=== PATIENT | male | born 1980 | race Caucasian/White ===

== ENCOUNTER 2017-08-31 22:27 | Emergency (ER) | payer OTHER ==
--- NOTE | 2017-09-01 00:45 | ER Document Report ---
ED General - General Chief Complaint: Abdominal Pain Stated Complaint: LEFT FLANK PAIN Time Seen by Provider: 09/01/17 00:30 Notes: Patient is a 37-year-old male who presents with complaints of left flank pain. Pains in the left flank and left lower quadrant. Started this started after he was moving some stuff in a garage initially thought maybe it pulled something even though he did not feel something pull that time. Pain is progressively gotten worse. Tonight he had a bowel movement that had some blood in it. He says it was not large amount of blood but he typically does not have blood in his bowel movements. Denies any fever. No vomiting. No diarrhea. Never had this pain before. No history of colonoscopy. He does have a family history of colon cancer. The only medications he takes are for PTSD. He has no other complaints at this time. TRAVEL OUTSIDE OF THE [place] IN LAST 30 DAYS: No - Related Data Allergies/Adverse Reactions: No Known Allergies Allergy (Verified 08/31/17 22:30) Past Medical History - Social History Smoking Status: Never Smoker Frequency of alcohol use: None Drug Abuse: None Family History: Reviewed & Not Pertinent Patient has suicidal ideation: No Patient has homicidal ideation: No Renal/ Medical History: Denies: Hx Peritoneal Dialysis Psychiatric Medical History: Reports: Hx Post Traumatic Stress Disorder Past Surgical History: Reports: Hx Orthopedic Surgery - Immunizations Hx Diphtheria, Pertussis, Tetanus Vaccination: Yes Review of Systems - Review of Systems Notes: My Normal Review Basic REVIEW OF SYSTEMS: CONSTITUTIONAL : Denies fever, chills, or sweats. Denies recent illness. EENT: Denies eye, ear, throat, or mouth pain or symptoms. Denies nasal or sinus congestion. CARDIOVASCULAR: Denies chest pain. RESPIRATORY: Denies cough, cold, or chest congestion. Denies shortness of breath, difficulty breathing, or wheezing. GASTROINTESTINAL: Left lower quadrant abdominal pain. Denies nausea, vomiting, or diarrhea. GENITOURINARY: Denies difficulty urinating, painful urination, burning, frequency, or blood in urine. MUSCULOSKELETAL: Denies neck or back pain or joint pain or swelling. SKIN: Denies rash or skin lesions. NEUROLOGICAL: Denies altered mental status or loss of consciousness. Denies headache. Denies weakness or paralysis or loss of use of either side. Denies problems with gait or speech. Denies sensory or motor loss. ALL OTHER SYSTEMS REVIEWED AND NEGATIVE. Physical Exam - Vital signs Vitals: Temp Pulse Resp BP Pulse Ox 98.4 F 90 18 152/93 H 99 08/31/17 22:30 08/31/17 22:30 08/31/17 22:30 08/31/17 22:30 08/31/17 22:30 - Notes Notes: General Appearance: Well nourished, alert, cooperative, no acute distress, mild obvious discomfort. Vitals: reviewed, See vital signs table. Head: no swelling or tenderness to the head Eyes: PERRL, EOMI, Conjuctiva clear Mouth: No decreasd moisture Lungs: No wheezing, No rales, No rhonci, No accessory muscle use, good air exchange bilaterally. Heart: Normal rate, Regular rythm, No murmur, no rub Abdomen: Normal BS, soft, No rigidity, mild to moderate left lower quadrant abdominal tenderness outpatient, No guarding, no rebound, no abdominal masses, no organomegaly Rectal: small amount of dry bloodnear rectum. No active bleeding. No hemorrhoids. Extremities: strength 5/5 in all extremities, good pulses in all extremities, no swelling or tenderness in the extremities, no edema. Skin: warm, dry, appropriate color, no rash Neuro: speech clear, oriented x 3, normal affect, responds appropriately to questions. Course - Re-evaluation Re-evalutation: 09/01/17 05:[address] scan does show what appears to be colitis. The also mentions could be epiploic appendagitis or cystitis. I do not think a cystitis patient has no white blood cells in his urine. I think is more likely is focal colitis based on the fact he did have some blood in the stool. I will place him on antibiotics for the next 7 days. I informed him [facility] I have put in office lab results and the CT scan results to bring with him. He does have family history of colon cancer and therefore I told him that he may need a colonoscopy soon and to discuss this with his doctor. I informed him that if his pain is not improving then he will definitely need a colonoscopy. I informed him that if his pain is getting worse or if he has fevers or recurrent blood in the stool that he must return to the ER immediately. Patient agrees with plan will be discharged home. Dictation of this chart was performed using voice recognition software; therefore, there may be some unintended grammatical errors. - Vital Signs Vital signs: Temp Pulse Resp BP Pulse Ox 98.4 F 90 18 132/90 H 99 08/31/17 22:30 08/31/17 22:30 09/01/17 02:01 09/01/17 04:02 09/01/17 04:02 - Laboratory Result Diagrams: 09/01/17 00:57 09/01/17 00:57 Laboratory results interpreted by me: 09/01/17 09/01/17 00:57 00:57 WBC 10.8 H RBC 5.75 H Calcium 10.3 H Discharge - Discharge Clinical Impression: Colitis Abdominal pain Qualifiers: Abdominal location: left lower quadrant Qualified Code(s): R10.32 - Left lower quadrant pain Condition: Good Disposition: HOME, SELF-CARE Additional Instructions: Based on your CT scan I suspect you have colitis. I will print off a copy of your CT scan and lab results for you to take and follow up with your primary care doctor. You may eventually need a colonoscopy if your symptoms are not improving with the antibiotics. Please return to the ER immediately if you have fevers, vomiting, worsening pain, or increasing recurrence of blood in your stool. Please follow up with [facility] doctor on Thursday for reevaluation. Please do not drink any alcohol when taking this antibiotic. Prescriptions: Ciprofloxacin HCl [Cipro 500 mg Tablet] 500 mg PO BID #14 tablet Metronidazole [Flagyl 500 mg Tablet] 500 mg PO Q6H #28 tablet
[2017-09-01 01:12] LABS: ABSOLUTE BASOPHILS # (AUTO) 0.1 10^3/uL (0.0-0.2); ABSOLUTE EOSINOPHILS # (AUTO) 0.1 10^3/uL (0.0-0.6); ABSOLUTE LYMPHOCYTES (AUTO) 2.8 10^3/uL (0.5-4.7); ABSOLUTE MONOCYTES (AUTO) 0.8 10^3/uL (0.1-1.4); ABSOLUTE NEUT (AUTO) 7.1 10^3/uL (1.7-8.2); BASOPHILS % (AUTO) 0.7 % (0-2); EOSINOPHILS % (AUTO) 0.9 % (0-6); HEMATOCRIT 48.3 % (37.9-51.0); HEMOGLOBIN 16.8 g/dL (13.5-17.0); HGB HCT DIFFERENCE 2.1; LYMPHOCYTES % (AUTO) 25.8 % (13-45); MEAN CORPUSCULAR HEMOGLOBIN 29.2 pg (27.0-33.4); MEAN CORPUSCULAR HGB CONC 34.7 g/dL (32.0-36.0); MEAN CORPUSCULAR VOLUME 84 fl (80-97); MONOCYTES % (AUTO) 7.2 % (3-13); RED BLOOD COUNT 5.75 10^6/uL (4.35-5.55); RED CELL DISTRIBUTION WIDTH 13.5 % (11.5-14.0); SEGMENTED NEUTROPHILS % (AUTO) 65.4 % (42-78); WHITE BLOOD COUNT 10.8 10^3/uL (4.0-10.5)
[2017-09-01 01:35] LABS: ALANINE AMINOTRANSFERASE 52 U/L (21-72); ALBUMIN 4.9 g/dL (3.5-5.0); ALKALINE PHOSPHATASE 89 U/L (38-126); ANION GAP 16 (5-19); ASPARTATE AMINO TRANSFERASE 25 U/L (17-59); BILIRUBIN,DIRECT 0.4 mg/dL (0.0-0.4); BILIRUBIN,TOTAL 1.2 mg/dL (0.2-1.3); BLOOD UREA NITROGEN 9 mg/dL (7-20); CALCIUM 10.3 mg/dL (8.4-10.2); CARBON DIOXIDE 24 mmol/L (22-30); CHLORIDE 105 mmol/L (98-107); CREATININE RESULT 0.85 mg/dL (0.52-1.25); GLUCOSE 96 mg/dL (75-110); POTASSIUM 4.3 mmol/L (3.6-5.0); SODIUM 144.9 mmol/L (137-145); TOTAL PROTEIN 7.9 g/dL (6.3-8.2)
[2017-09-01 01:51] LABS: APPEARANCE,URINE CLEAR; BILIRUBIN,URINE NEGATIVE (NEGATIVE); GLUCOSE, URINE NEGATIVE (NEGATIVE); KETONES,URINE NEGATIVE (NEGATIVE); LEUKOCYTE ESTERASE,URINE NEGATIVE (NEGATIVE); NITRITE,URINE NEGATIVE (NEGATIVE); PROTEIN,URINE NEGATIVE (NEGATIVE); URINE SPECIFIC GRAVITY 1.002; UROBILINOGEN,URINE NEGATIVE mg/dL (<2.0)
[2017-09-01] MEDS ORDERED: NORMAL SALINE 1000 ML 1,000 ML IV ONE (02:12)
--- NOTE | 2017-09-01 02:44 | RADIOLOGY REPORT (SQ) ---
EXAM DESCRIPTION: KUB/ABDOMEN (SINGLE VIEW) COMPLETED DATE/TIME: 09/01/2017 2:00 am REASON FOR STUDY: LLQ and left flank pain COMPARISON: None. NUMBER OF VIEWS: One view. TECHNIQUE: 2 supine radiographic images of the abdomen acquired. LIMITATIONS: None. FINDINGS: BOWEL GAS PATTERN: Nonobstructive bowel gas pattern. No dilated loops. CALCIFICATIONS: No suspicious calcifications. SOFT TISSUES: No gross mass. HARDWARE: None in the abdomen. BONES: No acute findings. IMPRESSION: Nonobstructive bowel gas pattern. TECHNICAL DOCUMENTATION: JOB ID: [id number] [place]-[id number] 2010 [employer]- All Rights Reserved
--- NOTE | 2017-09-01 03:09 | RADIOLOGY REPORT (SQ) ---
EXAM DESCRIPTION: CT ABD/PELVIS WITH IV ONLY COMPLETED DATE/TIME: 09/01/2017 2:46 am REASON FOR STUDY: LLQ abdominal pain COMPARISON: Abdominal x-ray 09/01/2017. TECHNIQUE: CT scan of the abdomen and pelvis performed using helical scanning technique with dynamic intravenous contrast injection. No oral contrast. Images reviewed with lung, soft tissue, and bone windows. Reconstructed coronal and sagittal MPR images reviewed. Delayed images for evaluation of the urinary system also acquired. All images stored on PACS. All CT scanners at this facility use dose modulation, iterative reconstruction, and/or weight based d osing when appropriate to reduce radiation dose to as low as reasonably achievable (ALARA). [facility]: Dose Right [facility]: CareDose [facility]: Dose Right [facility]: Teradose 4D [facility]: American Board of Addiction Medicine (ABAM) CONTRAST TYPE AND DOSE: contrast/concentration: Isovue 370.00 mg/ml; Total Contrast Delivered: 100.0 ml; Total Saline Delivered: 72.0 ml RENAL FUNCTION: None required. The patient is less than 50 years old. RADIATION DOSE: CT Rad equipment meets quality standard of care and radiation dose reduction techniq ues were employed. CTDIvol: 13.1 - 13.1 mGy. DLP: 1403 mGy-cm.. LIMITATIONS: None. FINDINGS: LOWER CHEST: No consolidation or pleural effusion. LIVER: Normal size. No masses. No dilated ducts. SPLEEN: Normal size. PANCREAS: No significant calcifications. No adjacent inflammation or peripancreatic fluid collections . Pancreatic duct not dilated. GALLBLADDER: Contracted. ADRENAL GLANDS: No significant masses or asymmetry. RIGHT KIDNEY AND URETER: No solid masses. No significant calcifications. No hydronephrosis or hyd roureter. LEFT KIDNEY AND URETER: No solid masses. No significant calcifications. No hydronephrosis or hydr oureter. AORTA AND VESSELS: No aneurysm. No dissection. Renal arteries, SMA, celiac without stenosis. RETROPERITONEUM: No retroperitoneal adenopathy, hemorrhage or masses. BOWEL AND PERITONEAL CAVITY: No dilated bowel loops. There is increased fat density in the left lowe r quadrant adjacent to the distal descending colon. No free fluid or free air. APPENDIX: Not visualized. PELVIS: The urinary bladder is decompressed with mild diffuse wall thickening and soft tissue strandi ng. No pelvic mass. No free fluid. ABDOMINAL WALL: Small fat containing umbilical hernia. Small fat containing right inguinal hernia. BONES: No acute findings. IMPRESSION: Increased fat density in the left lower quadrant adjacent to the distal descending colon ; differential considerations include epiploic appendagitis, omental infarct, focal colitis. Mild diffuse wall thickening at the urinary bladder and adjacent soft tissue stranding, may be seen w ith cystitis. Please correlate with laboratory values/ urinalysis. TECHNICAL DOCUMENTATION: JOB ID: [id number] OH-[id number] Quality ID # [id number]: Final reports with documentation of one or more dose reduction techniques (e.g., Au tomated exposure control, adjustment of the mA and/or kV according to patient size, use of iterative reconstruction technique) 2010 [employer]- All Rights Reserved
[2017-09-01] MEDS ORDERED: CIPROFLOXACIN HCL 500 MG TABLET PO ONE (03:34)
[2017-09-01] MEDS ORDERED: METRONIDAZOLE 500 MG TABLET PO ONE (03:34)
[2017-09-01 04:09] VITALS: BP 132/90
== END 2017-09-01 04:08 | disposition home or self-care (01) ==
LOC: ER 22:27
DX: K52.89 Other specified noninfective gastroenteritis and colitis (principal); R10.32 Left lower quadrant pain
CPT/HCPCS: 99284; 36415; 85025; 80053; 81001; 74000; 74177; J7030